=== PATIENT | female | born 1985 | race Two or more races ===

== ENCOUNTER 2017-09-24 09:49 | Emergency (ER) | payer OTHER ==
[2017-09-24 10:11] VITALS: TEMP 98.9; BMI 29.1
--- NOTE | 2017-09-24 10:33 | PDOC ---
History of Present Illness - General History Source: Patient Exam Limitations: No Limitations - History of Present Illness Initial Comments: 09/24/17 11:29 The patient is a 32 year old female, with a significant past medical history of a tonsillectomy( 1 week ago)who presents to the emergency department complaining of a sore throat and decreased p.o. Intake s/p tonsillectomy 1 week ago. The patient reports she has been unable to drink or eat anything secondary to throat pain when swallowing. Patient reports she has noted minimal improvement since her surgery. She reports she has been taking Tylenol 3(15mL) and Lidocaine viscous solution (13mL), with temporary relief of symptoms. She reports associated URI symptoms recently (mild cough,and congestion) but denies any fever, headache, changes in vision, or dizziness. She denies any chest pain , shortness of breath, diaphoresis, or palpitations. She denies any abdominal pain, nausea, vomiting, diarrhea, constipation, or changes in urination. She denies any recent travel or sick contacts No changes to her voice. Allergies: NKDA Past Surgical History: Tonsillectomy Social History: Non smoker. No ETOH or recreational drug use. <Betsy Herrera - Last Filed: 09/24/17 11:29> <Hilario Blake - Last Filed: 09/24/17 13:36> - General Chief Complaint: Sore Throat Stated Complaint: THROAT PAIN Time Seen by Provider: 09/24/17 10:15 Past History <Betsy Herrera - Last Filed: 09/24/17 11:29> - Past Medical History COPD: No - Suicide/Smoking/Psychosocial Hx Smoking History: Never smoked Have you smoked in the past 12 months: No Information on smoking cessation initiated: No Hx Alcohol Use: No Drug/Substance Use Hx: No Substance Use Type: None <Hilario Blake - Last Filed: 09/24/17 13:36> - Past Medical History Allergies/Adverse Reactions: Allergies Allergy/AdvReac Type Severity Reaction Status Date / Time No Known Allergies Allergy Verified 09/24/17 10:39 Home Medications: Ambulatory Orders NK [No Known Home Medication] 09/24/17 Review of Systems - Review of Systems Able to Perform ROS?: Yes Comments:: 09/24/17 11:30 CONSTITUTIONAL: Reported: No reported: Fever, Diaphoresis, Generalized Weakness, Malaise, Loss of Appetite HEENT: Reported: Throat pain, Congestion, Difficulty Swallowing, Tinnitus No reported: Rhinorrhea, Throat Swelling, Mouth Swelling, Ear Pain, Eye Pain, Visual Changes CARDIOVASCULAR: No reported: Chest Pain, Syncope, Palpitations, Irregular Heart Rate, Lightheadedness, Peripheral Edema RESPIRATORY: Reported: Cough No reported: Shortness of Breath, SOB with Exertion, Orthopnea, Wheezing, Stridor, Hemoptysis GASTROINTESTINAL: No reported: Abdominal pain, Abdominal Distension, Nausea, Vomiting, Diarrhea, Constipation GENITOURINARY: No reported: Dysuria, Frequency, Urgency, Hesitancy, Flank Pain, Genital Pain <Herrera,Giomilsy - Last Filed: 09/24/17 11:29> *Physical Exam - Vital Signs Last Vital Signs Temp Pulse Resp BP Pulse Ox 98.9 F 129 H 25 H 136/69 100 09/24/17 10:07 09/24/17 10:07 09/24/17 10:07 09/24/17 10:07 09/24/17 10:07 - Physical Exam Comments: 09/24/17 11:30 GENERAL: The patient is awake, alert, and fully oriented, Nontoxic - in no acute distress. HEAD: Normocephalic, atraumatic. EYES: extraocular movements intact, sclera anicteric, conjunctiva clear. ENT: mildly dry mmm, symmetric posterior pharynx, b/l excudates in posterior pharynx, mild injected, no potserior pharyngeal fullness, no mastoid tenderness , ears with cerumen b/l, airway patent, no stridor, normal voice. NECK: Normal range of motion, supple LUNGS: Breath sounds equal, clear to auscultation bilaterally. No wheezes, no rhonchi, no rales. HEART: Regular rate and rhythm, normal S1 and S2 without murmur, rub or gallop. ABDOMEN: Soft, nontender, normoactive bowel sounds. No guarding, no rebound. . No CVA tenderness EXTREMITIES: Normal range of motion, no edema. No clubbing or cyanosis. No cords, erythema, or tenderness. NEUROLOGICAL: No facial assymetry, Normal speech, SKIN: Warm, Dry, normal turgor, <Herrera,Giomilsy - Last Filed: 09/24/17 11:29> - Vital Signs Last Vital Signs Temp Pulse Resp BP Pulse Ox 98.9 F 129 H 25 H 136/69 100 09/24/17 10:07 09/24/17 10:07 09/24/17 10:07 09/24/17 10:07 09/24/17 10:07 <Hilario Blake - Last Filed: 09/24/17 13:36> ED Treatment Course - LABORATORY CBC & Chemistry Diagram: 09/24/17 11:00 09/24/17 11:00 - ADDITIONAL ORDERS Additional order review: 09/24/17 11:00 RBC 4.62 MCV 91.3 MCHC 32.8 RDW 12.8 MPV 8.3 Neutrophils % 57.1 Lymphocytes % 23.5 Monocytes % 14.2 H Eosinophils % 4.6 H Basophils % 0.6 <Betsy Herrera - Last Filed: 09/24/17 11:29> - LABORATORY CBC & Chemistry Diagram: 09/24/17 11:00 09/24/17 11:00 <Hilario Blake - Last Filed: 09/24/17 13:36> Medical Decision Making - Medical Decision Making 09/24/17 11:25 32y F presents with throat pain 1 week sp tonsilectomy - no associated fever/ chills, difficulty phonating, +difficluty swalling due to pain. on exam pt in n odistress with normal voice, posterior pharynx noted to be healing well, no signs of abscess, assymetry, patent airway - suspect she is not using her medications appropriately she does have tachycardic vitals but i suspect that is due to dehydration will ck basic labs to see if she has a leuckocyosis/left shift A portion of this note was documented by scribe services under my direction. I have reviewed the details of the note, within reason, and agree with the documentation with the following case summary and management plan written by me 09/24/17 12:36 Pts vials improved pt feeling imrpoved labs wnl will dc wit hsupportive measures and ENT fu <Hilario Blake - Last Filed: 09/24/17 13:36> *DC/Admit/Observation/Transfer - Attestations Scribe Attestion: 09/24/17 11:30 Documentation prepared by Betsy Herrera, acting as medical scientific officer for Hilario Blake MD. <Betsy Hererra - Last Filed: 09/24/17 11:29> - Discharge Dispostion Admit: No <Hilario Blake - Last Filed: 09/24/17 13:36> Diagnosis at time of Disposition: Sore throat - Discharge Dispostion Disposition: HOME Condition at time of disposition: Improved - Referrals Referrals: Robbi Lemons MD [Staff Physician] - - Patient Instructions Printed Discharge Instructions: DI for Tonsillectomy-Adult Additional Instructions: Please follow up with your ENT surgeon at [facility]. Take the antonia nmedications as prescribed. If you have any fevers, difficulty swallowing, or other concerns, return to the ED for evaluation. Print Language: CHADIAN
[2017-09-24] MEDS ORDERED: SODIUM CHLORIDE 1,000 ML IV ONE (10:37)
[2017-09-24 11:07] LABS: BASO % 0.6 % (0-2.0); EOS % 4.6 % (0-4.5); HEMATOCRIT 42.2 % (32.4-45.2); HEMOGLOBIN 13.9 GM/dL (10.7-15.3); LYMPH % 23.5 % (8-40); MCHC 32.8 g/dl (32.0-36.0); MEAN CELL VOLUME 91.3 fl (80-96); MEAN PLT VOLUME 8.3 fl (7.5-11.1); MONO % 14.2 % (3.8-10.2); NEUT % 57.1 % (42.8-82.8); PLATELET COUNT 243 K/MM3 (134-434); RBC 4.62 M/mm3 (3.60-5.2); RDW 12.8 % (11.6-15.6)
[2017-09-24 11:37] LABS: ALBUMIN 3.7 g/dl (3.4-5.0); ANION GAP 8 (8-16); BILIRUBIN,TOTAL 0.6 mg/dL (0.2-1.0); BLOOD UREA NITROGEN 11 mg/dL (7-18); CALCIUM 9.3 mg/dL (8.5-10.1); CHLORIDE 100 mmol/L (98-107); CO2 31 mmol/L (21-32); CREATININE 0.8 mg/dL (0.55-1.02); GLUCOSE,RANDOM 92 mg/dL (74-106); POTASSIUM 3.4 mmol/L (3.5-5.1); SGOT/AST 8 U/L (15-37); SGPT/ALT 14 U/L (12-78); SODIUM 139 mmol/L (136-145); TOT PROT 8.4 g/dl (6.4-8.2)
[2017-09-24 11:38] LABS: ALK PHOS 66 U/L (45-117)
[2017-09-24] MEDS ORDERED: LIDOCAINE VISCOUS 2% ORAL/TOP 20 ML UNIT-DOSE CUP MM ONE (12:35)
[2017-09-24] MEDS ORDERED: MAG HYDROX/AL HYDROX/SIMETH 355 ML ORAL.SUSP PO ONE (12:36)
[2017-09-24] MEDS ORDERED: LIDOCAINE VISCOUS 2% ORAL/TOP 20 ML UNIT-DOSE CUP ONE (12:55)
[2017-09-24] MEDS ORDERED: MAG HYDROX/AL HYDROX/SIMETH 30 ML UNIT-DOSE CUP ONE (12:55)
[2017-09-24 13:53] VITALS: BP 120/70; PULSE 80
== END 2017-09-24 13:54 | disposition home or self-care (01) ==
LOC: JER 09:49
PROC: 3E0337Z Introduction of Electrolytic and Water Balance Substance into Peripheral Vein, Percutaneous Approach (ICD-10-PCS; principal; 2017-09-24)
DX: G89.18 Other acute postprocedural pain (principal)
CPT/HCPCS: 36415; 80053; 85025; 99283-25

== ENCOUNTER 2018-02-25 09:53 | Emergency (ER) | payer OTHER ==
[2018-02-25 10:13] VITALS: TEMP 98.1; BMI 32.5
--- NOTE | 2018-02-25 10:15 | PDOC ---
History of Present Illness - General Chief Complaint: Pain, Acute Stated Complaint: ABD PAIN Time Seen by Provider: 02/25/18 10:15 - History of Present Illness Initial Comments: 02/25/18 10:23 Ms. Rai is a 32 yo female w/ recent diagnosis of fibroids who presents for evaluation of right sided abdominal pain she reports goes from her right upper abdomen to her pelvis. She reports this has been ongoing for the past 6-7 days however she decided that "enough was enough" and she needed to come in for further evaluation. She has had some nausea. She is not currently having her period however believes it is due soon. The patient denies chest pain, shortness of breath, headache and dizziness. Denies fever, chills, vomit, diarrhea and constipation. Denies dysuria, frequency, urgency and hematuria. Allergies: NKDA Past History - Past Medical History Allergies/Adverse Reactions: Allergies Allergy/AdvReac Type Severity Reaction Status Date / Time No Known Allergies Allergy Verified 02/25/18 10:10 Home Medications: Ambulatory Orders NK [No Known Home Medication] 09/24/17 COPD: No Other medical history: DENIES. - Suicide/Smoking/Psychosocial Hx Smoking History: Never smoked Have you smoked in the past 12 months: No Hx Alcohol Use: No Drug/Substance Use Hx: No Substance Use Type: None Review of Systems - Review of Systems Comments:: 02/25/18 10:25 GENERAL/CONSTITUTIONAL: No fever or chills. No weakness. HEAD, EYES, EARS, NOSE AND THROAT: No change in vision. No ear pain or discharge. No sore throat. CARDIOVASCULAR: No chest pain or shortness of breath RESPIRATORY: No cough, wheezing, or hemoptysis. GASTROINTESTINAL: +Right abdominal radiating to pelvic pain as described. No nausea, vomiting, diarrhea or constipation. GENITOURINARY: No dysuria, frequency, or change in urination. MUSCULOSKELETAL: No joint or muscle swelling or pain. No neck or back pain. SKIN: No rash NEUROLOGIC: No headache, vertigo, loss of consciousness, or change in strength/ sensation. ENDOCRINE: No increased thirst. No abnormal weight change HEMATOLOGIC/LYMPHATIC: No anemia, easy bleeding, or history of blood clots. ALLERGIC/IMMUNOLOGIC: No hives or skin allergy. *Physical Exam - Vital Signs Last Vital Signs Temp Pulse Resp BP Pulse Ox 98.1 F 76 19 114/71 100 02/25/18 10:10 02/25/18 10:10 02/25/18 10:10 02/25/18 10:10 02/25/18 10:10 - Physical Exam Comments: 02/25/18 10:25 GENERAL: Awake, alert, and fully oriented, in no acute distress HEAD: No signs of trauma, normocephalic, atraumatic EYES: PERRLA, EOMI, sclera anicteric, conjunctiva clear ENT: Auricles normal inspection, hearing grossly normal, nares patent, oropharynx clear without exudates. Moist mucosa NECK: Normal ROM, supple, no lymphadenopathy, JVD, or masses LUNGS: No distress, speaks full sentences, clear to auscultation bilaterally HEART: Regular rate and rhythm, normal S1 and S2, no murmurs, rubs or gallops, peripheral pulses normal and equal bilaterally. ABDOMEN: +Right sided abdominal pain, Soft, normoactive bowel sounds. No guarding, no rebound. No masses EXTREMITIES: Normal inspection, Normal range of motion, no edema. No clubbing or cyanosis. NEUROLOGICAL: Cranial nerves II through XII grossly intact. Normal speech, normal gait, no focal sensorimotor deficits SKIN: Warm, Dry, normal turgor, no rashes or lesions noted. : +Right adnexal tenderness. Os closed. No CMT. No blood noted in vaginal vault. Physiologic discharge appreciated. ED Treatment Course - LABORATORY CBC & Chemistry Diagram: 02/25/18 10:55 02/25/18 10:55 Medical Decision Making - Medical Decision Making 02/25/18 13:31 Ms. Rai is a 32 yo female w/ pmh as described who presents for evaluation of right sided abdominal pain significant for right sided adnexal tenderness on exam. Transvaginal US ordered for r/o torsion negative, however urine and quant HCG as below both positive for early (unconfirmed as well w/ US). Discussed with patient that pain is possibly from this however repeat US ordered for abdominal RUQ and general for evaluation. 02/25/18 16:42 US negative however not able to visualize appendix. Patient repeat exam negative for pain. Concern for acute appendicitis very low at this time. Discharging patient with instructions to f/u in 2-3 days for repeat US and beta for evaluation of . Patient verbalized understanding and agreement and will comply. *DC/Admit/Observation/Transfer Diagnosis at time of Disposition: Early stage of Abdominal pain Qualifiers: Abdominal location: unspecified location Qualified Code(s): R10.9 - Unspecified abdominal pain - Discharge Dispostion Disposition: HOME - Referrals Referrals: Amadeo Trujillo [Primary Care Provider] - - Patient Instructions Printed Discharge Instructions: DI for Abdominal Pain -- Early Additional Instructions: You were found to have early today in the ER. Please follow-up in 2-3 days either in ER or at [facility] as discussed for repeat imaging and lab tests. Return to ER immediately if any return of abdominal pain, fevers, chills, or any other concerning symptoms. - Post Discharge Activity Forms/Work/School Notes: Back to Work
[2018-02-25] MEDS ORDERED: SODIUM CHLORIDE 1,000 ML IV STA (10:43)
[2018-02-25 11:25] LABS: BASO % 0.5 % (0-2.0); EOS % 1.3 % (0-4.5); HEMOGLOBIN 13.1 GM/dL (10.7-15.3); LYMPH % 26.5 % (8-40); MCH 31.1 pg (25.7-33.7); MCHC 33.7 g/dl (32.0-36.0); MEAN CELL VOLUME 92.1 fl (80-96); MEAN PLT VOLUME 9.1 fl (7.5-11.1); NEUT % 64.7 % (42.8-82.8); PLATELET COUNT 195 K/MM3 (134-434); RBC 4.23 M/mm3 (3.60-5.2); RDW 12.9 % (11.6-15.6); WHITE BLOOD COUNT 6.3 K/mm3 (4.0-10.0)
[2018-02-25 11:40] LABS: PROTHROMBIN TIME (PATIENT) 11.3 SEC (9.7-13.0)
[2018-02-25 11:42] LABS: ACTIVATED PTT 30.1 SECONDS (25.2-36.5)
[2018-02-25 11:47] LABS: URINE APPEARANCE CLEAR; URINE BILIRUBIN NEGATIVE (<2.0 mg/dL); URINE COLOR YELLOW; URINE GLUCOSE (UA) NEGATIVE (NEGATIVE); URINE KETONE NEGATIVE (NEGATIVE); URINE LEUK ESTERASE NEGATIVE (NEGATIVE); URINE NITRITE NEGATIVE (NEGATIVE); URINE PROTEIN NEGATIVE (NEGATIVE); URINE UROBILINOGEN NEGATIVE mg/dL (0.2-1.0)
[2018-02-25 11:53] LABS: EPI CELLS RARE /HPF (FEW); URINE MUCUS RARE
[2018-02-25 12:05] LABS: ALBUMIN 3.8 g/dl (3.4-5.0); ALK PHOS 56 U/L (45-117); ANION GAP 8 (8-16); BILIRUBIN,TOTAL 0.5 mg/dL (0.2-1.0); BLOOD UREA NITROGEN 13 mg/dL (7-18); CALCIUM 8.7 mg/dL (8.5-10.1); CHLORIDE 106 mmol/L (98-107); CO2 25 mmol/L (21-32); CREATININE 0.7 mg/dL (0.55-1.02); GLUCOSE,RANDOM 87 mg/dL (74-106); SGOT/AST 8 U/L (15-37); SGPT/ALT 19 U/L (12-78); SODIUM 139 mmol/L (136-145)
[2018-02-25 12:21] LABS: HCG,QUALITATIVE URINE POSITIVE
[2018-02-25] MEDS ORDERED: ACETAMINOPHEN 1000 MG/100 ML VIAL (NON FORMULARY) IVPB ONE (13:44)
[2018-02-25] MEDS ORDERED: ACETAMINOPHEN INJECTION 100 ML IVPB ONE (13:52)
--- NOTE | 2018-02-25 14:06 | PDOC ---
Attending Attestation - Resident Resident Name: Bandar Owen - ED Attending Attestation I have performed the following: I have examined & evaluated the patient, The case was reviewed & discussed with the resident, I agree w/resident's findings & plan, Exceptions are as noted - HPI HPI: 02/25/18 14:01 "The patient is a 32 year old female with a significant PMH of tonsillectomy, fibroids(diagnosed recently), who presents to the emergency department with right sided abdominal pain for about 1 week. The patient reports that her right sided abdominal pain radiates from her right upper abdomen to her pelvis area. Pt denies any vaginal bleeding or discharge. She was previously on depot control but recently had it removed and is now only using condoms. She denies any fever, chills, nausea, vomit, diarrhea, constipation or urinary symptoms. She denies any chest pain, shortness of breath, headache and dizziness. The patient denies other complaints. PCP: Dr. Trujillo " - Physicial Exam PE: 02/25/18 14:02 "GENERAL: Awake, alert, and fully oriented, in no acute distress. HEAD: No signs of trauma EYES: PERRLA, EOMI, sclera anicteric, conjunctiva clear ENT: Auricles normal inspection, hearing grossly normal, nares patent, oropharynx clear without exudates. Moist mucosa NECK: Nontender, no stepoffs, Normal ROM, supple, no lymphadenopathy, JVD, or masses LUNGS: Breath sounds equal, clear to auscultation bilaterally. No wheezes, and no crackles HEART: Regular rate and rhythm, normal S1 and S2, no murmurs, rubs or gallops ABDOMEN: + RLQ tenderness, normoactive bowel sounds. No guarding, no rebound. No masses EXTREMITIES: Normal range of motion, no edema. No clubbing or cyanosis. No cords, erythema, or tenderness NEUROLOGICAL: Cranial nerves II through XII intact. 5/5 strength and sensation in all extremities, Normal speech, normal gait, normal cerebellar function SKIN: Warm, Dry, normal turgor, no rashes or lesions noted. : + R adnexal tenderness, no CMT - Medical Decision Making 02/25/18 14:03 32 F with RLQ pain. UPT positive in ED. TVUS does not know IUP, likely because is too early. No evidence of torsion or ectopic at this time. Will need eval for acute appy given location of pain. - Labs, UA - Pelvic US to r/o appy - Tylenol Pt refusing CT at this time and plans to keep . - Consider MRI if US non-diagnostic 02/25/18 16:47 US with no visualization of appendix. Pt reassessed - abdominal exam now completely nontender. Pt reports resolution of pain. Pt had no leukocytosis, no vomiting, no fever. Suspicion is very low for acute appy. Pt instructed to return for any worsening symptoms, understands need to f/u for repeat US and HCG. Pt is well appearing, with normal vitals. Clinically stable for DC at this time. I discussed the physical exam findings, ancillary test results and final diagnoses with the patient. I answered all of the patient's questions. The patient was satisfied with the care received and felt comfortable with the discharge plan and treatment plan. The patient agrees to follow up with the primary care physician within 24-72 hours.
[2018-02-25 17:13] VITALS: BP 124/75; PULSE 84
== END 2018-02-25 17:00 | disposition home or self-care (01) ==
LOC: JER 09:53
PROC: 3E0337Z Introduction of Electrolytic and Water Balance Substance into Peripheral Vein, Percutaneous Approach (ICD-10-PCS; principal; 2018-02-25)
PROC: 3E033NZ Introduction of Analgesics, Hypnotics, Sedatives into Peripheral Vein, Percutaneous Approach (ICD-10-PCS; 2018-02-25)
DX: O26.891 Other specified pregnancy related conditions, first trimester (principal); R10.31 Right lower quadrant pain; O34.11 Maternal care for benign tumor of corpus uteri, first trimester; Z3A.01 Less than 8 weeks gestation of pregnancy
CPT/HCPCS: 36415; 76705-TC; 76830-TC; 76856-TC; 80053; 81003; 81015; 84702; 84703; 85025; 85610; 85730; 86850; 86870; 86900; 86901; 86902; 87086; 99281-25; J0131; J7030

== ENCOUNTER 2018-02-28 11:55 | Emergency (ER) | payer OTHER ==
[2018-02-28 11:59] VITALS: BP 124/78; PULSE 77; TEMP 98.2; BMI 32.5
--- NOTE | 2018-02-28 12:32 | PDOC ---
History of Present Illness - General Chief Complaint: BHCG Stated Complaint: REVISIT/ LAB VARIANCE Time Seen by Provider: 02/28/18 12:21 - History of Present Illness Initial Comments: 32-year-old female found to have an early a few days ago when seen in the emergency room for abdominal pain. Since her discharge her abdominal pain has gotten better. She is here to rule out an ectopic. She takes Topamax for headaches. No other comorbidities. 02/28/18 12:25 Past History - Past Medical History Allergies/Adverse Reactions: Allergies Allergy/AdvReac Type Severity Reaction Status Date / Time No Known Allergies Allergy Verified 02/28/18 11:56 Home Medications: Ambulatory Orders NK [No Known Home Medication] 09/24/17 COPD: No - Suicide/Smoking/Psychosocial Hx Smoking History: Never smoked Have you smoked in the past 12 months: No Information on smoking cessation initiated: No Hx Alcohol Use: No Drug/Substance Use Hx: No Substance Use Type: None Review of Systems - Review of Systems All Other Systems: Reviewed and Negative *Physical Exam - Vital Signs Last Vital Signs Temp Pulse Resp BP Pulse Ox 98.2 F 77 18 124/78 100 02/28/18 11:57 02/28/18 11:57 02/28/18 11:57 02/28/18 11:57 02/28/18 11:57 - Physical Exam Comments: ABdomen is soft and non tender Neuro intact No gross senroy or motor deficits 02/28/18 12:36 ED Treatment Course - RADIOLOGY Radiology Studies Ordered: Category Date Time Status TRANSVAGINAL US PREG [US] Stat Ultrasound 02/28/18 12:23 Ordered Medical Decision Making - Medical Decision Making 02/28/18 12:40 [facility] get [facility] and US to confirm IUP *DC/Admit/Observation/Transfer Diagnosis at time of Disposition: Miscarriage - Discharge Dispostion Disposition: HOME Condition at time of disposition: Stable Decision to Admit order: No - Referrals Referrals: Amadeo Trujillo [Primary Care Provider] - Jsesica Clemens [Staff Physician] - Becca Bass MD [Staff Physician] - Linnea Penn DO [Staff Physician] - Veronique Alarcon CNM [Certified Nurse Can Maker] - Floresita Celis MD [Non Staff, Medical] - Simon Connolly PA [Physician Summer Sessions Director] - Francesca Villanueva PA [Non Staff, Medical] - Liana Bai [Non Staff, Medical] - - Patient Instructions Printed Discharge Instructions: Dealing With Miscarriage, Miscarriage, DI for Miscarriage Additional Instructions: Return to the emergency room should her symptoms worsen or go unresolved. In the meantime follow-up with your color stripper for further evaluation and treatment options. - Post Discharge Activity
== END 2018-02-28 14:05 | disposition home or self-care (01) ==
LOC: JERFT 11:55
DX: O02.1 Missed abortion (principal)
CPT/HCPCS: 36415; 76817-TC; 84702; 99281-25

== ENCOUNTER 2018-09-20 15:05 | Emergency (ER) | payer OTHER ==
[2018-09-20 15:12] VITALS: BP 136/76; PULSE 108; TEMP 99.6; BMI 22.8
[2018-09-20] MEDS ORDERED: IBUPROFEN 600 MG TABLET (FP) PO ONE ×2 (15:13→15:18)
--- NOTE | 2018-09-20 15:13 | PDOC ---
Rapid Medical Evaluation Medical Evaluation: Allergies Allergy/AdvReac Type Severity Reaction Status Date / Time No Known Allergies Allergy Verified 03/09/18 12:34 I have performed a brief in-person evaluation of this patient. The patient presents with a chief complaint of: c/o sore throat, fever x 1 day; denies rhinorrhea, nasal congestion, cough, body aches, n/v/d; denies taking any antipyretics Pertinent physical exam findings: slight redness to oropharynx, no exudates noted I have ordered the following: Motrin The patient will proceed to the ED for further evaluation. 09/20/18 15:07 Discharge Disposition - Referrals Referrals: Amadeo Trujillo [Primary Care Provider] - - Patient Instructions - Post Discharge Activity
--- NOTE | 2018-09-20 17:11 | PDOC ---
History of Present Illness - General Chief Complaint: Sore Throat Stated Complaint: WEAKNESS Time Seen by Provider: 09/20/18 16:05 - History of Present Illness Initial Comments: 09/20/18 17:09 33-year-old female with cough subjective fever and sore throat times one day Past History - Past Medical History Allergies/Adverse Reactions: Allergies Allergy/AdvReac Type Severity Reaction Status Date / Time No Known Allergies Allergy Verified 09/20/18 15:07 Home Medications: Ambulatory Orders NK [No Known Home Medication] 09/20/18 COPD: No - Suicide/Smoking/Psychosocial Hx Smoking History: Never smoked Have you smoked in the past 12 months: No Hx Alcohol Use: No Drug/Substance Use Hx: No Substance Use Type: None Review of Systems - Review of Systems Constitutional: Yes: Fever HEENTM: Yes: Throat Pain Respiratory: Yes: Cough *Physical Exam - Vital Signs Last Vital Signs Temp Pulse Resp BP Pulse Ox 99.6 F 108 H 20 136/76 99 09/20/18 15:08 09/20/18 15:08 09/20/18 15:08 09/20/18 15:08 09/20/18 15:08 - Physical Exam Comments: 09/20/18 17:10 HEAD: NC/AT EYES: Conjuntiva clear Ears: Canals and TM's normal NOSE: No d/c THROAT: Moist mucous membrances, oral pharanx clear, uvula midline NECK: Supple without adenopathy CARDIAC: S1 S2 LUNGS: CTA Full and Equal breath sounds ABDOMEN: Soft NT ND MS: Full ROM in all joints without edema NEUROLOGIC: No gross sensory or motor deficits, NVID SKIN: Normal color and temperature no lesions or rashes Moderate Sedation - Procedure Monitoring Vital Signs: Procedure Monitoring Vital Signs Temperature 99.6 F 09/20/18 15:08 Pulse Rate 108 H 09/20/18 15:08 Respiratory Rate 20 09/20/18 15:08 Blood Pressure 136/76 09/20/18 15:08 O2 Sat by Pulse Oximetry (%) 99 09/20/18 15:08 ED Treatment Course - Medications Given in the ED: ED Medications Discontinued Medications Generic Name Dose Route Start Last Admin Trade Name Freq PRN Reason Stop Dose Admin Ibuprofen 600 mg 09/20/18 15:13 09/20/18 15:19 Motrin - PO 09/20/18 15:14 600 mg ONCE ONE Administration *DC/Admit/Observation/Transfer Diagnosis at time of Disposition: Upper respiratory infection - Referrals Referrals: Amadeo Trujillo [Primary Care Provider] - - Patient Instructions Printed Discharge Instructions: DI for Viral Upper Respiratory Infection -- Adult Additional Instructions: He may take Tylenol and Motrin as directed for fever and body aches. Return to the emergency room should symptoms worsen or go unresolved and follow-up with your primary care physician one to 2 days for further evaluation and treatment options. - Post Discharge Activity
== END 2018-09-20 17:12 | disposition home or self-care (01) ==
LOC: JER 15:05 → JERFT 15:05
DX: J06.9 Acute upper respiratory infection, unspecified (principal); B97.89 Other viral agents as the cause of diseases classified elsewhere
CPT/HCPCS: 87804; 99281-25

== ENCOUNTER 2019-03-18 08:00 | Inpatient (IN) | payer OTHER ==
[2019-03-18] MEDS ORDERED: OXYTOCIN 30 UNITS in 0.9% NS 30 UNIT/500 ML INFUS.BAG IVPB ONE (08:24)
[2019-03-18] MEDS: ELECTROLYTE-148 SOLN 1,000 ML IV SCH ×3 (08:30→14:30)
[2019-03-18] MEDS ORDERED: BUTORPHANOL TARTRATE 1 MG/ML VIAL IVPB ONE (08:34)
[2019-03-18] MEDS ORDERED: PROMETHAZINE HCL 25 MG/1 ML VIAL IVPUSH ONE (08:34)
[2019-03-18 09:01] VITALS: BMI 34.5
--- NOTE | 2019-03-18 09:24 | HP ---
Past Medical History - Admission Chief Complaint: Here for labor induction. History of Present Illness: 33 y/o female with SIUP at 37.3 weeks gestation here for IOL due to gestational HTN. 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 no signs of anemia. H/o X 2, h/o induction for hypertension in the past. Pt diagnosed with gHTN this , recently started on labetalol 200 BID. Pt denies WINSLOW/RUQ pain or changes/spots in vision. No clonus in LE. +1 nonpitting edema B/l. History Source: Patient, Medical Record Limitations to Obtaining History: No Limitations - Past Medical History Cardiovascular: Yes: HTN Pulmonary: No: Asthma, COPD Hepatobiliary: No: Hepatitis B, Hepatitis C Renal/: Yes: UTI Reproductive: Yes: Fibroids. No: Ectopic , Endometriosis, PID ...: 3 ...Para: 2 ...Term: 2 ...LMP: 07/04/18 ... Weeks Gestation by Dates: 37.3 ...EDC by Dates: 04/05/19 ...EDC by Sono: 04/05/19 Infectious Disease: No: HIV, MRSA, STD's Psych: No: Anxiety, Bipolar, Depression - Past Surgical History Hx Myomectomy: No Hx Transabdominal Cerclage: No Additional Surgical History: fluid evacuation from brain/craniotomy - Smoking History Smoking history: Never smoked Have you smoked in the past 12 months: No - Alcohol/Substance Use Hx Alcohol Use: No - Social History Usual Living Arrangement: Yes: With Spouse ADL: Independent History of Recent Travel: No Home Medications - Allergies Allergies/Adverse Reactions: Allergies Allergy/AdvReac Type Severity Reaction Status Date / Time No Known Allergies Allergy Verified 03/18/19 08:45 - Home Medications Home Medications: Ambulatory Orders Vitamins (Sjr) - 1 tab PO DAILY 02/18/19 Review of Systems - Review of Systems Constitutional: reports: No Symptoms Eyes: reports: No Symptoms HENT: reports: No Symptoms Neck: reports: No Symptoms Cardiovascular: reports: No Symptoms Respiratory: reports: No Symptoms Gastrointestinal: reports: No Symptoms Genitourinary: reports: No Symptoms Breasts: reports: No Symptoms Reported Musculoskeletal: reports: No Symptoms Integumentary: reports: No Symptoms Neurological: reports: No Symptoms Endocrine: reports: No Symptoms Hematology/Lymphatic: reports: No Symptoms Psychiatric: reports: No Symptoms Physical Exam - Maternity Vital Signs: Vital Signs Temperature 98.1 F 03/18/19 08:50 Pulse Rate 104 H 03/18/19 08:50 Respiratory Rate 20 03/18/19 08:50 Blood Pressure 125/82 03/18/19 08:50 O2 Sat by Pulse Oximetry (%) Constitutional: Yes: Well Nourished, No Distress, Calm Eyes: Yes: Conjunctiva Clear, EOM Intact Neck: Yes: Supple Cardiovascular: Yes: Regular Rate and Rhythm Lungs: Clear to auscultation - Abdominal Exam/OB Number of Fetuses: Single Presentation: Vertex Contractions: No Category: I Accelerations: Uniform Decelerations: None - Vaginal Exam/OB Dilatation (cm): 3 Effacement (%): 50 Amniotic Membrane Status: Intact Presentation: Vertex/Position - Physical Exam Psychiatric: Yes: Alert, Oriented Hemorrhage Risk Assessment - Risk Factors Medium Risk Factors: Yes: None. No: Large myomas High Risk Factors: Yes: None Risk Score: 1 Risk Level: Medium Risk Problem List - Problems (1) Gestational hypertension affecting third Code(s): O13.9 - GESTATIONAL HTN W/O SIGNIFICANT PROTEINURIA, UNSP TRIMESTER (2) Anti-Melton antibodies present Code(s): R76.8 - OTHER SPECIFIED ABNORMAL IMMUNOLOGICAL FINDINGS IN SERUM Assessment/Plan 33 y/o with SIUP at 37.3 weeks gestation here for IOL due to gestational HTN BPs in normal to mild range NST reactive bishops score 8, ready for pitocin active management
[2019-03-18] MEDS ORDERED: OXYTOCIN 30 UNITS in 0.9% NS 30 UNIT/500 ML INFUS.BAG IVPB SCH (10:00)
[2019-03-18 10:01] LABS: EPI CELLS 20.4 /HPF (0-5/HPF); HYALINE CASTS 45 /lpf (0-8); PH,URINE 5.5 (5.0-8.0); URINE APPEARANCE CLOUDY; URINE BACTERIA 1587.3 /hpf (NEGATIVE); URINE BILIRUBIN NEGATIVE (NEGATIVE); URINE COLOR DK YELLOW; URINE GLUCOSE (UA) NEGATIVE (NEGATIVE); URINE KETONE TRACE (NEGATIVE); URINE LEUK ESTERASE 3+ (NEGATIVE); URINE NITRITE NEGATIVE (NEGATIVE); URINE PROTEIN 1+ (NEGATIVE); URINE RBC 1 /hpf (0-4); URINE WBC 116 /hpf (0-5)
[2019-03-18 10:16] LABS: BASO % 0.5 % (0-2.0); EOS % 0.4 % (0-4.5); LYMPH % 19.1 % (8-40); MCH 26.6 pg (25.7-33.7); MCHC 33.2 g/dl (32.0-36.0); MEAN CELL VOLUME 80.2 fl (80-96); MEAN PLT VOLUME 8.6 fl (7.5-11.1); MONO % 8.5 % (3.8-10.2); NEUT % 71.5 % (42.8-82.8); RBC 3.37 M/mm3 (3.60-5.2); RDW 15.7 % (11.6-15.6); WHITE BLOOD COUNT 7.7 K/mm3 (4.0-10.0)
[2019-03-18 10:34] LABS: BLOOD UREA NITROGEN 10.7 mg/dL (7-18); CALCIUM 8.8 mg/dL (8.5-10.1); CREATININE 0.9 mg/dL (0.55-1.3); POTASSIUM 3.4 mmol/L (3.5-5.1)
[2019-03-18 10:37] LABS: PLATELET COUNT 228 K/MM3 (134-434)
[2019-03-18 10:39] LABS: ALBUMIN 2.5 g/dl (3.4-5.0); BILIRUBIN,TOTAL 0.4 mg/dL (0.2-1); BLOOD UREA NITROGEN 11.1 mg/dL (7-18); CALCIUM 9.2 mg/dL (8.5-10.1); CREATININE 0.9 mg/dL (0.55-1.3); POTASSIUM 3.4 mmol/L (3.5-5.1); TOT PROT 6.8 g/dl (6.4-8.2); URIC ACID 5.1 mg/dL (2.6-7.2)
[2019-03-18 11:59] LABS: INR 0.96 (0.83-1.09); PROTHROMBIN TIME (PATIENT) 11.3 SEC (9.7-13.0)
--- NOTE | 2019-03-18 12:37 | PN ---
Progress Note (short form) - Note Progress Note: Labs reviewed. protein/cr ration = 0.208, does not meet criteria for pre eclampsia by proteinuria at this time Problem List - Problems (1) Gestational hypertension affecting third Code(s): O13.9 - GESTATIONAL HTN W/O SIGNIFICANT PROTEINURIA, UNSP TRIMESTER (2) Anti-Melton antibodies present Code(s): R76.8 - OTHER SPECIFIED ABNORMAL IMMUNOLOGICAL FINDINGS IN SERUM
[2019-03-18] MEDS ORDERED: FENTANYL/BUPIVACAINE/NS/PF - PCEA - 50 ML DISP.SYRIN EP ONE ×2 (12:47→17:44)
[2019-03-18] MEDS ORDERED: NALOXONE HCL 0.4 MG/ML VIAL IVPUSH PRN (13:40)
[2019-03-18] MEDS ORDERED: BUPIVACAINE HCL/PF 0.25% (2.5MG/ML) 10 ML VIAL ONE (13:42)
[2019-03-18] MEDS ORDERED: LIDO 2%/EPI 1:200000 PRESRVFRE (20 ML SDVIAL) ONE (13:42)
[2019-03-18] MEDS: FENTANYL/BUPIVACAINE/NS/PF - PCEA - 50 ML DISP.SYRIN EP SCH ×2 (13:55→17:49)
--- NOTE | 2019-03-18 18:40 | PN ---
Ante-Partal Exam - Subjective Subjective: Feeling pressure. Vital Signs: Vital Signs Temperature 98.1 F 03/18/19 17:59 Pulse Rate 86 03/18/19 18:30 Respiratory Rate 20 03/18/19 18:30 Blood Pressure 154/89 03/18/19 18:30 O2 Sat by Pulse Oximetry (%) 100 03/18/19 18:15 Bleeding: Yes Bleeding Description: Mild Headache: No Visual changes: No Right upper quadrant pain: No - Contractions Contractions: Yes Regularity: Regular Intensity: Strong - Exam during Labor Heart Rate: 130 Variability: Moderate Category: I Monitor Accelerations: Present Monitor Decelerations: None Exam: Vaginal Dilatation (cm): 9.5 Effacement (%): 100 Amniotic Membrane Status: Ruptured Presentation: Vertex Station: 0 - Assessment/Plan Assessment/Plan: 33 y/o P2 female with SIUP at 37.3, IOL for gHTN FHTs cat 1 GHTN, BPs normal to mild range, no medication required since admission IOL, on pitocin s/p AROM, 9.5 cm dilated, to begin pushing in 30 mins GBS negative anticipate
[2019-03-18] MEDS ORDERED: OXYTOCIN 20 UNITS in 0.9% NS 20 UNIT/1,000 ML INFUS.BAG IV ONE (19:01)
[2019-03-18] MEDS: MISOPROSTOL 200 MCG TABLET NR SCH ×2 (19:45→22:00)
--- NOTE | 2019-03-18 19:58 | PN ---
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 Present: No Infant Gender: Male Position: Left, OA - 1 Minute Total Score: 6 5 Minutes Total Score: 9 - Feeding Plan Initial Plan: Elected not to breastfeed exclusively throughout hospitalization Remarks - Remarks Remarks: of baby from DAVID position across intact perineum after delivery of head, nuchal cord noted, clamped and cut at perineum anterior shoulder (right) didn't delivery with gentle downward traction, deandre position and suprapubic pressure applied to deliver shoulder, approx 20 seconds from delivery of head to shoulder remainder of delivered with ease, taken to warmer to be assessed by staff, Apgars 6/9 assigned placenta delivered manually and in tact, ultrasound completed afterward, no retained placenta noted uterine atony noted after delivery, 1000mcg [place] cytotec given, pitocin running wide open no laceration appreciated, no repair indicated mom stable baby to nursery
[2019-03-18] MEDS ORDERED: BISACODYL 10 MG SUPP.RECT RC PRN (19:59)
[2019-03-18] MEDS ORDERED: BENZOCAINE 20% 57 GM BOTTLE TP PRN (19:59)
[2019-03-18] MEDS ORDERED: WITCH HAZEL 50% (TUCKS) 40 PAD/JAR PAD TP PRN (19:59)
[2019-03-18] MEDS ORDERED: IBUPROFEN 600 MG TABLET (FP) PO PRN (19:59)
[2019-03-18] MEDS ORDERED: BENZOCAINE 28 GM HEMORRHOIDAL OINTMENT TP PRN (19:59)
[2019-03-18] MEDS ORDERED: METHYLERGONOVINE MALEATE 0.2 MG/1 ML AMP IM PRN (19:59)
[2019-03-18] MEDS ORDERED: OXYTOCIN 20 UNITS in 0.9% NS 20 UNIT/1,000 ML INFUS.BAG IV SCH (20:00)
[2019-03-18 20:13] LABS: ARTERIAL BLD GAS O2 SATURATION 45.9 % (95-98); ARTERIAL BLOOD GAS BASE EXCESS 0.4 meq/l (-2-2); ARTERIAL BLOOD GAS PCO2 56.4 mmHg (35-45); ARTERIAL BLOOD GAS pH 7.31 (7.35-7.45)
[2019-03-18 20:18] LABS: VENOUS PC02 43.5 mmHg (41-51); VENOUS PH 7.38 (7.31-7.41); VENOUS PO2 33.9 mmHg (30-40)
[2019-03-18 20:19] LABS: ARTERIAL BLOOD GAS PO2 23.6 mmHg (80-105)
[2019-03-18] MEDS ORDERED: ACETAMINOPHEN 325 MG TABLET (FP) ONE (20:44)
[2019-03-18] MEDS ORDERED: ceFAZolin SODIUM 1 GM VIAL ONE (20:45)
[2019-03-18] MEDS ORDERED: CEFAZOLIN 2 GM in DEXTROSE 5%-WATER - 50 ML IVPB SCH (20:45)
--- NOTE | 2019-03-18 20:49 | PN ---
Progress Note, Physician History of Present Illness: Pt has fever of 101.2 Pt did receive 1000mcg [place] cytotec which can cause fever. however, manual extraction of placenta was completed will give prophylactic antibiotics for now continue to observe - Current Medication List Current Medications: Active Medications Acetaminophen (Tylenol -) 650 mg PO Q3H PRN PRN Reason: PAIN Benzocaine (Americaine 20% [place] -) 1 spray TP PRN PRN PRN Reason: PAIN Benzocaine (Americaine Ointment -) 1 applic TP PRN PRN PRN Reason: PAIN Bisacodyl (Dulcolax Suppository -) 10 mg RC PRN PRN PRN Reason: CONSTIPATION Fentanyl/Bupivacaine/Sodium Chlor (Bupivicaine 0.125%/Fentanyl 2mcg/Ml Pcea) 50 ml EP [facility]; Protocol Last Admin: 03/18/19 17:49 Dose: 50 ml Ferrous Sulfate (Feosol -) 325 mg PO TIDCM [facility] Parenteral Electrolytes (Plasma-Lyte 148 -) 1,000 mls @ 125 mls/hr IV [facility] Last Admin: 03/18/19 14:30 Dose: 125 mls/hr Oxytocin/Sodium Chloride (Normal Saline+20 Units Oxytocin -) 20 unit in 1,000 mls @ 125 mls/hr IV [facility] Cefazolin Sodium 2 gm/ (Dextrose) 50 mls @ 200 mls/hr IVPB Q8H-IV [facility] Ibuprofen (Motrin -) 600 mg PO Q4H PRN PRN Reason: PAIN Misoprostol (Cytotec -) 1,000 mcg NR [facility] Naloxone HCl (Narcan -) 0.4 mg IVPUSH PRN PRN PRN Reason: Sedation Multivit/Folic Acid/Iron ( Vitamins (Sjr) -) 1 tab PO DAILY [facility] Senna/Docusate Sodium (Pericolace -) 2 tablet PO HS PRN PRN Reason: CONSTIPATION Witch Holli/Glycerin (Tucks Pads -) 1 pad TP PRN PRN PRN Reason: PAIN - Objective Vital Signs: Vital Signs Temperature 101.2 F H 03/18/19 20:40 Pulse Rate 103 H 03/18/19 19:15 Respiratory Rate 20 03/18/19 19:15 Blood Pressure 143/57 L 03/18/19 19:15 O2 Sat by Pulse Oximetry (%) 99 03/18/19 19:15 Labs: CBC, BMP 03/18/19 09:15 03/18/19 09:15 INR, PTT INR 0.96 (0.83-1.09) 03/18/19 09:15 Problem List - Problems (1) Gestational hypertension affecting third Code(s): O13.9 - GESTATIONAL HTN W/O SIGNIFICANT PROTEINURIA, UNSP TRIMESTER (2) Anti-Melton antibodies present Code(s): R76.8 - OTHER SPECIFIED ABNORMAL IMMUNOLOGICAL FINDINGS IN SERUM
[2019-03-18] MEDS: ACETAMINOPHEN 325 MG TABLET (FP) PO PRN (20:50)
[2019-03-18 21:06] LABS: BASO % 0.2 % (0-2.0); EOS % 0.1 % (0-4.5); HEMATOCRIT 27.2 % (32.4-45.2); HEMOGLOBIN 8.6 GM/dL (10.7-15.3); LYMPH % 7.6 % (8-40); MCH 25.8 pg (25.7-33.7); MCHC 31.6 g/dl (32.0-36.0); MEAN CELL VOLUME 81.5 fl (80-96); MEAN PLT VOLUME 8.4 fl (7.5-11.1); MONO % 8.8 % (3.8-10.2); NEUT % 83.3 % (42.8-82.8); PLATELET COUNT 210 K/MM3 (134-434); RBC 3.33 M/mm3 (3.60-5.2); WHITE BLOOD COUNT 13.7 K/mm3 (4.0-10.0)
[2019-03-18] MEDS ORDERED: CEFAZOLIN 2 GM/D5W 2 GM/50 ML ML IVPB SCH (21:51)
[2019-03-18] MEDS: FERROUS SO4 325 MG TABLET (FP) PO SCH (22:15)
[2019-03-19] MEDS: CEFAZOLIN 2 GM/D5W 2 GM/50 ML ML IVPB SCH ×3 (05:41→21:59)
--- NOTE | 2019-03-19 06:17 | PN ---
Post Progress Note - Subjective Subjective: Pt seen/evaluated and doing well. Tolerating diet, ambulating, voiding. Lochia moderate but stable. Had 100.2 temp overnight, denies f/c this a.m. Type of Delivery: Vital Signs: Vital Signs Temperature 98.8 F 03/19/19 05:39 Pulse Rate 88 03/19/19 05:39 Respiratory Rate 03/19/19 05:39 Blood Pressure 137/88 03/19/19 05:39 O2 Sat by Pulse Oximetry (%) 100 03/18/19 19:30 Uterus: Yes: Fundus Firm Abdomen/GI: Yes: Abdomen soft, Tolerating PO Lochia: Yes: Rubra Lochia, amount: Small Extremities: Yes: Calves non-tender. No: Edema Perineum: Yes: Intact Activity: Ambulating - Labs Labs: CBC WBC 13.7 K/mm3 (4.0-10.0) H 03/18/19 20:58 RBC 3.33 M/mm3 (3.60-5.2) L 03/18/19 20:58 Hgb 8.6 GM/dL (10.7-15.3) L 03/18/19 20:58 Hct 27.2 % (32.4-45.2) L 03/18/19 20:58 MCV 81.5 fl (80-96) 03/18/19 20:58 MCH 25.8 pg (25.7-33.7) 03/18/19 20:58 MCHC 31.6 g/dl (32.0-36.0) L 03/18/19 20:58 RDW 16.0 % (11.6-15.6) H 03/18/19 20:58 Plt Count 210 K/MM3 (134-434) 03/18/19 20:58 MPV 8.4 fl (7.5-11.1) 03/18/19 20:58 Absolute Neuts (auto) 11.4 K/mm3 (1.5-8.0) H 03/18/19 20:58 Neutrophils % 83.3 % (42.8-82.8) H 03/18/19 20:58 Lymphocytes % 7.6 % (8-40) L D 03/18/19 20:58 Monocytes % 8.8 % (3.8-10.2) 03/18/19 20:58 Eosinophils % 0.1 % (0-4.5) 03/18/19 20:58 Basophils % 0.2 % (0-2.0) 03/18/19 20:58 Nucleated RBC % 0 % (0-0) 03/18/19 20:58 Problem List - Problems (1) Gestational hypertension affecting third Code(s): O13.9 - GESTATIONAL HTN W/O SIGNIFICANT PROTEINURIA, UNSP TRIMESTER (2) Anti-Melton antibodies present Code(s): R76.8 - OTHER SPECIFIED ABNORMAL IMMUNOLOGICAL FINDINGS IN SERUM (3) hemorrhage Code(s): O72.1 - OTHER IMMEDIATE HEMORRHAGE Assessment/Plan 33 y/o PPD#1 s/p normal delivery, IOL for gestational HTN, also with PPH regular diet encourage ambulation s/p fever at 9 pm last night, likely 2/2 cytotec, continue 24 hours antibiotic prophylaxis BPs all normal range/mild range since admission, does not meet criteria for pre Eclampsia, will monitor lochia has been stable, await a.m. cbc
[2019-03-19 06:49] LABS: BASO % 0.5 % (0-2.0); EOS % 0.2 % (0-4.5); HEMATOCRIT 22.2 % (32.4-45.2); HEMOGLOBIN 7.2 GM/dL (10.7-15.3); LYMPH % 13.2 % (8-40); MCH 26.4 pg (25.7-33.7); MCHC 32.6 g/dl (32.0-36.0); MEAN CELL VOLUME 80.8 fl (80-96); MEAN PLT VOLUME 8.6 fl (7.5-11.1); MONO % 9.5 % (3.8-10.2); NEUT % 76.6 % (42.8-82.8); PLATELET COUNT 193 K/MM3 (134-434); RBC 2.75 M/mm3 (3.60-5.2); RDW 15.9 % (11.6-15.6)
[2019-03-19] MEDS: FERROUS SO4 325 MG TABLET (FP) PO SCH ×3 (08:00→16:47)
--- NOTE | 2019-03-19 09:18 | PN ---
Progress Note (short form) - Note Progress Note: Nursing staff called regarding 2 mild range elevated BP. Pt asymptomatic. Will restart Labetalol with hold parameters. Pt also with Hgb of 7.2, is s/p PPH, asymptomatic, will recheck CBC this afternoon. For PO Iron at this time. Problem List - Problems (1) Gestational hypertension affecting third Code(s): O13.9 - GESTATIONAL HTN W/O SIGNIFICANT PROTEINURIA, UNSP TRIMESTER (2) Anti-Melton antibodies present Code(s): R76.8 - OTHER SPECIFIED ABNORMAL IMMUNOLOGICAL FINDINGS IN SERUM (3) hemorrhage Code(s): O72.1 - OTHER IMMEDIATE HEMORRHAGE
[2019-03-19] MEDS: PRENATAL VITAMINS W/ FOLIC ACID TABLET (FP) PO SCH (09:44)
[2019-03-19] MEDS: LABETALOL HCL 200 MG TABLET (FP) PO SCH ×2 (10:29→22:05)
[2019-03-19] MEDS ORDERED: DIPHTH,PERTUSS(ACELL),TET 0.5 ML DISP.SYRIN IM ONE (11:00)
[2019-03-19 14:51] LABS: BASO % 0.3 % (0-2.0); EOS % 0.4 % (0-4.5); HEMATOCRIT 22.9 % (32.4-45.2); HEMOGLOBIN 7.5 GM/dL (10.7-15.3); LYMPH % 12.2 % (8-40); MCH 26.2 pg (25.7-33.7); MCHC 32.6 g/dl (32.0-36.0); MEAN CELL VOLUME 80.2 fl (80-96); MEAN PLT VOLUME 8.5 fl (7.5-11.1); MONO % 8.9 % (3.8-10.2); NEUT % 78.2 % (42.8-82.8); RBC 2.85 M/mm3 (3.60-5.2); RDW 15.9 % (11.6-15.6); WHITE BLOOD COUNT 13.8 K/mm3 (4.0-10.0)
[2019-03-19 15:04] LABS: PLATELET COUNT 212 K/MM3 (134-434)
[2019-03-19] MEDS ORDERED: SENNOSIDES/DOCUSATE COMBO (SENNA PLUS) TABLET (UD) PO PRN (22:00)
[2019-03-20] MEDS: FERROUS SO4 325 MG TABLET (FP) PO SCH ×3 (08:10→17:22)
--- NOTE | 2019-03-20 08:39 | PN ---
Post Progress Note - Subjective Subjective: Pt seen/evaluated. Eating breakfast upon my arrival to room. No complaints. Does not c/o headache/changes in vision/RUQ pain. Some LE edema, no tenderness. BPs have been in mild HTN range since delivery. Taking Labetalol 200 BID. Type of Delivery: Vital Signs: Vital Signs Temperature 98.0 F 03/19/19 22:00 Pulse Rate 88 03/20/19 06:10 Respiratory Rate 20 03/20/19 06:10 Blood Pressure 146/86 03/20/19 06:10 O2 Sat by Pulse Oximetry (%) 100 03/18/19 19:30 Uterus: Yes: Fundus Firm Incision: Yes: Dressing dry and intact Abdomen/GI: Yes: Abdomen soft Lochia: Yes: Rubra Lochia, amount: Small Extremities: Yes: Calves non-tender. No: Calf tenderness Perineum: Yes: Intact Activity: Ambulating - Labs Labs: CBC WBC 13.8 K/mm3 (4.0-10.0) H 03/19/19 14:20 RBC 2.85 M/mm3 (3.60-5.2) L 03/19/19 14:20 Hgb 7.5 GM/dL (10.7-15.3) L 03/19/19 14:20 Hct 22.9 % (32.4-45.2) L 03/19/19 14:20 MCV 80.2 fl (80-96) 03/19/19 14:20 MCH 26.2 pg (25.7-33.7) 03/19/19 14:20 MCHC 32.6 g/dl (32.0-36.0) 03/19/19 14:20 RDW 15.9 % (11.6-15.6) H 03/19/19 14:20 Plt Count 212 K/MM3 (134-434) 03/19/19 14:20 MPV 8.5 fl (7.5-11.1) 03/19/19 14:20 Absolute Neuts (auto) 10.8 K/mm3 (1.5-8.0) H 03/19/19 14:20 Neutrophils % 78.2 % (42.8-82.8) 03/19/19 14:20 Lymphocytes % 12.2 % (8-40) 03/19/19 14:20 Monocytes % 8.9 % (3.8-10.2) 03/19/19 14:20 Eosinophils % 0.4 % (0-4.5) D 03/19/19 14:20 Basophils % 0.3 % (0-2.0) 03/19/19 14:20 Nucleated RBC % 0 % (0-0) 03/19/19 14:20 Problem List - Problems (1) Gestational hypertension affecting third Code(s): O13.9 - GESTATIONAL HTN W/O SIGNIFICANT PROTEINURIA, UNSP TRIMESTER (2) Anti-Melton antibodies present Code(s): R76.8 - OTHER SPECIFIED ABNORMAL IMMUNOLOGICAL FINDINGS IN SERUM (3) hemorrhage Code(s): O72.1 - OTHER IMMEDIATE HEMORRHAGE Assessment/Plan 33 y/o PPD#2 s/p normal , gestational HTN, post hemorrhage Hgb stable pt with mild range BPs, taking Labetalol 200 BID, will have nephro come see pt for clearance to go home regular diet PO pain meds possible d/c home today if nephro says ok
[2019-03-20] MEDS: PRENATAL VITAMINS W/ FOLIC ACID TABLET (FP) PO SCH (09:07)
[2019-03-20] MEDS: LABETALOL HCL 200 MG TABLET (FP) PO SCH (09:07)
--- NOTE | 2019-03-20 11:46 | CONSULT ---
Consult - text type - Consultation Consultation Note: Renal Consult for hypertension This is a 33 year old woman with history of hydrocephalus presented at 37 weeks with gestational hypertension and s/p vaginal delivery with hypertension. Pt reports that early on in her her BP was noted to be high and was started on medication. She did not have hypertension prior to . Currently denies any CP, SOB, WINSLOW, blurry vision , abd pain, N/V/D. Making urine. No in significant pain. PMhx: as above AllergieS: NKDA Family Hx: Hypertension (brother in 30s) Social Hx: No T/A/D ROS: as per HPI, all other pertinent ros negative Home Medications Medication Instructions Recorded Vitamins (Sjr) - 1 tab PO DAILY 02/18/19 Ferrous Sulfate [Feosol] 325 mg PO BID #60 tablet 03/19/19 Labetalol HCl [Normodyne -] 200 mg PO BID 03/19/19 Vital Signs Temperature 98.5 F 03/20/19 08:50 Pulse Rate 94 H 03/20/19 08:50 Respiratory Rate 20 03/20/19 08:50 Blood Pressure 140/85 03/20/19 08:50 O2 Sat by Pulse Oximetry (%) 100 03/18/19 19:30 Intake & Output 03/17/19 03/18/19 03/19/19 03/20/19 23:59 23:59 23:59 23:59 Intake Total 3256 Output Total 1100 650 Balance 2156 -650 Weight 106.141 kg NAD awake and alert neck supple no LE edema CBC, BMP 03/19/19 14:20 03/18/19 09:15 Laboratory Tests 03/18/19 03/18/19 08:30 08:30 Urine Protein 1+ H Urine Ketones Trace H Ur Leukocyte Esterase 3+ H Urine WBC (Auto) 116 Ur Random Creatinine 259.0 H U Random Total Protein 54.0 H UPCR 0.2 Current Medications Acetaminophen (Tylenol -) 650 mg PO Q3H PRN PRN Reason: PAIN Last Admin: 03/18/19 20:50 Dose: 650 mg Benzocaine (Americaine 20% [place] -) 1 spray TP PRN PRN PRN Reason: PAIN Benzocaine (Americaine Ointment -) 1 applic TP PRN PRN PRN Reason: PAIN Bisacodyl (Dulcolax Suppository -) 10 mg RC PRN PRN PRN Reason: CONSTIPATION Fentanyl/Bupivacaine/Sodium Chlor (Bupivicaine 0.125%/Fentanyl 2mcg/Ml Pcea) 50 ml EP ASDIR [facility]; Protocol Last Admin: 03/18/19 17:49 Dose: 50 ml Ferrous Sulfate (Feosol -) 325 mg PO TIDCM [facility] Last Admin: 03/20/19 08:10 Dose: 325 mg Parenteral Electrolytes (Plasma-Lyte 148 -) 1,000 mls @ 125 mls/hr IV ASDIR [facility] Last Admin: 03/18/19 14:30 Dose: 125 mls/hr Oxytocin/Sodium Chloride (Normal Saline+20 Units Oxytocin -) 20 unit in 1,000 mls @ 125 mls/hr IV ASDIR [facility] Last Admin: 03/18/19 19:45 Dose: 125 mls/hr Ibuprofen (Motrin -) 600 mg PO Q4H PRN PRN Reason: PAIN Labetalol HCl (Normodyne -) 200 mg PO BID [facility] Last Admin: 03/20/19 09:07 Dose: 200 mg Naloxone HCl (Narcan -) 0.4 mg IVPUSH PRN PRN PRN Reason: Sedation Multivit/Folic Acid/Iron ( Vitamins (Sjr) -) 1 tab PO DAILY [facility] Last Admin: 03/20/19 09:07 Dose: 1 tab Senna/Docusate Sodium (Pericolace -) 2 tablet PO HS PRN PRN Reason: CONSTIPATION Witch Holli/Glycerin (Tucks Pads -) 1 pad TP PRN PRN PRN Reason: PAIN 33 year old woman with no significant past medical history presented at 37 weeks with gestational hypertension and s/p vaginal dilivery with hypertension. # hypertension from preesclaspia vs. gestation hypertension vs. pre- existing hypertension #37 weeks gestation s/p vaginal delivery #Anemia s/p /delivery Urine PCR <0.3 which makes preeclampsia less likely Start NIfdedpine ER 30mg Daily Change labetalol to 200mg Q6h PRN for SBP > 160 or DBP > 100 d/c NSAIDs pain control low salt diet will need inpatient monitoring Thank you Salo rey
[2019-03-20] MEDS ORDERED: LABETALOL HCL 200 MG TABLET (FP) PO PRN (12:00)
[2019-03-20] MEDS: NIFEdipine E.R. 30 MG TABLET (FP) PO SCH (12:16)
[2019-03-20] MEDS: ACETAMINOPHEN 325 MG TABLET (FP) PO PRN (22:05)
[2019-03-21] MEDS: ACETAMINOPHEN 325 MG TABLET (FP) PO PRN ×2 (01:47→06:14)
[2019-03-21] MEDS: FERROUS SO4 325 MG TABLET (FP) PO SCH ×2 (08:01→12:03)
[2019-03-21 09:11] VITALS: TEMP 98.5
--- NOTE | 2019-03-21 09:54 | DS ---
Physical Exam-STALLION MANAGER Vital Signs: Vital Signs Temperature 98.5 F 03/21/19 09:00 Pulse Rate 102 H 03/21/19 09:00 Respiratory Rate 20 03/21/19 09:00 Blood Pressure 121/81 03/21/19 09:00 O2 Sat by Pulse Oximetry (%) 100 03/18/19 19:30 Constitutional: No: No Distress Eyes: Yes: Conjunctiva Clear HENT: Yes: Atraumatic Neck: Yes: Supple Cardiovascular: Yes: Regular Rate and Rhythm Respiratory: Yes: Regular Gastrointestinal: Yes: Normal Bowel Sounds Pelvis: Yes: WNL External Genitalia: Yes: Normal Vaginal Exam: Yes: Normal Cervix: Yes: Normal Uterus: Yes: Firm ....Post : Yes: Uterus firm Breast(s): Yes: WNL Musculoskeletal: Yes: WNL Extremities: Yes: WNL Neurological: Yes: Alert, Oriented ...Motor Strength: WNL Psychiatric: Yes: Alert, Oriented Labs: CBC, BMP 03/19/19 14:20 03/18/19 09:15 Delivery - Delivery Vaginal Delivery: Shoulder/Difficult (right (anterior) shoulder delivered after deandre and suprapubic pressure) Maneuvers: deandre, suprapubic Type of Anesthesia: Epidural Episiotomy/Laceration: None EBL (cc): 500 Delivery, Single - Stages of Labor Date 1st Stage Initiatied: 03/18/19 Time 1st Stage Initiated: 09:30 Date 2nd Stage Initiated: 03/18/19 Time 2nd Stage Initiated: 19:10 Date of Delivery: 03/18/19 Time of Delivery: 19:26 Time Placenta Delivered: 19:40 Placenta: Yes: Manual Removal - Condition of [place] 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 She was evaluated by Psychologist Educational. Condition: Good - Instructions Diet, Activity, Other Instructions: Physical activity Resume your normal everyday activity as tolerated no heavy lifting or exercise until seen by your surgeon. You may walk unlimited amounts and climb stairs. You may resume driving the car when you feel safe and comfortable behind the wheel. No sexual activity as instructed. Wound care You may shower daily, no soaking in tubs/baths/pools for 6 weeks or until cleared by your doctor. Diet There are no dietary restrictions. Eat healthy, high-fiber foods. Drink 6 to 8 glasses of liquid each day. This will assist in keeping your bowels regular. Pain management You may take Tylenol or acetaminophen or Ibuprofen as needed for pain. Call MD for any of the following: Severe pain not relieved by medication Fever of 101 or higher Excessive bleeding or drainage on dressing Inability to urinate Disposition: HOME - Home Medications Comprehensive Discharge Medication List: Ambulatory Orders Vitamins (Sjr) - 1 tab PO DAILY 02/18/19 Ferrous Sulfate [Feosol] 325 mg PO BID #60 tablet 03/19/19 Labetalol HCl [Normodyne -] 200 mg PO BID 03/19/19
[2019-03-21] MEDS: NIFEdipine E.R. 30 MG TABLET (FP) PO SCH (10:03)
[2019-03-21] MEDS: PRENATAL VITAMINS W/ FOLIC ACID TABLET (FP) PO SCH (10:03)
--- NOTE | 2019-03-21 13:26 | PN ---
Progress Note (short form) - Note Progress Note: Renal follow up for hypertension Pt seen and examined at the bedside awake and alert reports a mild headache no sob, cp, palpitations, dizziness or lightheadedness Vital Signs Temperature 98.5 F 03/21/19 09:00 Pulse Rate 100 H 03/21/19 13:25 Respiratory Rate 20 03/21/19 09:00 Blood Pressure 140/84 03/21/19 13:25 O2 Sat by Pulse Oximetry (%) 100 03/18/19 19:30 Intake & Output 03/18/19 03/19/19 03/20/19 03/21/19 23:59 23:59 23:59 23:59 Intake Total 3256 Output Total 1100 650 Balance 2156 -650 Weight 106.141 kg NAD no edema CBC, BMP 03/19/19 14:20 03/18/19 09:15 Current Medications Acetaminophen (Tylenol -) 650 mg PO Q3H PRN PRN Reason: PAIN Last Admin: 03/21/19 06:14 Dose: 650 mg Benzocaine (Americaine 20% [place] -) 1 spray TP PRN PRN PRN Reason: PAIN Benzocaine (Americaine Ointment -) 1 applic TP PRN PRN PRN Reason: PAIN Bisacodyl (Dulcolax Suppository -) 10 mg RC PRN PRN PRN Reason: CONSTIPATION Ferrous Sulfate (Feosol -) 325 mg PO TIDCM [facility] Last Admin: 03/21/19 12:03 Dose: 325 mg Parenteral Electrolytes (Plasma-Lyte 148 -) 1,000 mls @ 125 mls/hr IV ASDIR [facility] Last Admin: 03/18/19 14:30 Dose: 125 mls/hr Oxytocin/Sodium Chloride (Normal Saline+20 Units Oxytocin -) 20 unit in 1,000 mls @ 125 mls/hr IV ASDIR [facility] Last Admin: 03/18/19 19:45 Dose: 125 mls/hr Labetalol HCl (Normodyne -) 200 mg PO Q6H PRN PRN Reason: HYPERTENSION Naloxone HCl (Narcan -) 0.4 mg IVPUSH PRN PRN PRN Reason: Sedation Nifedipine (Procardia Xl -) 30 mg PO DAILY [facility] Last Admin: 03/21/19 10:03 Dose: 30 mg Multivit/Folic Acid/Iron ( Vitamins (Sjr) -) 1 tab PO DAILY [facility] Last Admin: 03/21/19 10:03 Dose: 1 tab Senna/Docusate Sodium (Pericolace -) 2 tablet PO HS PRN PRN Reason: CONSTIPATION Witch Holli/Glycerin (Tucks Pads -) 1 pad TP PRN PRN PRN Reason: PAIN 33 year old woman with no significant past medical history presented at 37 weeks with gestational hypertension and s/p vaginal dilivery with hypertension. # hypertension from preesclaspia vs. gestation hypertension vs. pre- existing hypertension #37 weeks gestation s/p vaginal delivery #Anemia s/p /delivery BP is moderated Can be discharged home with Nifedpine ER 30mg Daily advised if WINSLOW worsens to call the office as nifedpine can cause headaches will need close follow up as outpatient for monitoring of BP Advised to maintain a low salt diet, and avoid regular use of NSAIDs Pt informed of symptoms of hypotension and what to do if she were to experience them Will call in Rx to pharmacy advised pt not to take labetalol in addition to nifedpine advised to get BP cuff at home and record readings twice daily Paras Hyde DO
[2019-03-21 13:31] VITALS: BP 140/84; PULSE 100
== END 2019-03-21 15:30 | disposition home or self-care (01) | DRG 806 ==
LOC: JLDR 08:00 → J3W 22:08
PROVIDERS: ADMIT Obstetrics & Gynecology; ATTEND Obstetrics & Gynecology
PROC: 10E0XZZ Delivery of Products of Conception, External Approach (ICD-10-PCS; principal; 2019-03-18)
PROC: 3E033VJ Introduction of Other Hormone into Peripheral Vein, Percutaneous Approach (ICD-10-PCS; 2019-03-18)
PROC: 3E0R3BZ Introduction of Anesthetic Agent into Spinal Canal, Percutaneous Approach (ICD-10-PCS; 2019-03-18)
DX: O13.3 Gestational [pregnancy-induced] hypertension without significant proteinuria, third trimester (principal); O72.1 Other immediate postpartum hemorrhage; Z37.0 Single live birth; O69.81X0 Labor and delivery complicated by cord around neck, without compression, not applicable or unspecified; O26.893 Other specified pregnancy related conditions, third trimester; R76.8 Other specified abnormal immunological findings in serum; O99.02 Anemia complicating childbirth; D64.9 Anemia, unspecified; O34.13 Maternal care for benign tumor of corpus uteri, third trimester; D25.9 Leiomyoma of uterus, unspecified; Z3A.37 37 weeks gestation of pregnancy
CPT/HCPCS: 36415; 36600; 59409; 80048; 80053; 81003; 82565; 82803; 84156; 84550; 85025; 85610; 85730; 86850; 86870; 86900; 86901; 86902; 87389; 90715

== ENCOUNTER 2021-05-22 10:58 | Emergency (ER) | payer OTHER ==
[2021-05-22 11:28] VITALS: BP 152/78; PULSE 82; TEMP 98.1; BMI 35.4
[2021-05-22] MEDS ORDERED: SODIUM CHLORIDE 0.9% 500 ML INFUS.BAG IV ONE (12:03)
[2021-05-22] MEDS ORDERED: KETOROLAC TROMETHAMINE 30 MG/1 ML VIAL IVPB ONE (12:03)
[2021-05-22] MEDS ORDERED: METOCLOPRAMIDE HCL INJECTION 10 MG/2 ML VIAL IVPUSH ONE (12:04)
[2021-05-22] MEDS ORDERED: KETOROLAC TROMETHAMINE 30 MG/1 ML VIAL ONE (12:22)
[2021-05-22] MEDS ORDERED: METOCLOPRAMIDE HCL INJECTION 10 MG/2 ML VIAL ONE (12:26)
[2021-05-22 12:40] LABS: BASO % 0.4 % (0-2.0); EOS % 1.7 % (0-4.5); HEMOGLOBIN 12.4 GM/dL (10.7-15.3); LYMPH % 23.1 % (8-40); MCH 30.2 pg (25.7-33.7); MCHC 33.6 g/dl (32.0-36.0); MEAN CELL VOLUME 89.8 fl (80-96); MEAN PLT VOLUME 8.6 fl (7.5-11.1); MONO % 7.2 % (3.8-10.2); NEUT % 67.6 % (42.8-82.8); PLATELET COUNT 199 10^3/uL (134-434); RBC 4.12 M/mm3 (3.60-5.2); RDW 14.5 % (11.6-15.6); WHITE BLOOD COUNT 6.6 K/mm3 (4.0-10.0)
[2021-05-22 12:58] LABS: ALBUMIN 3.3 g/dl (3.4-5.0); CALCIUM 8.9 mg/dL (8.5-10.1)
[2021-05-22 13:02] LABS: CREATININE 0.7 mg/dL (0.55-1.3)
[2021-05-22 13:04] LABS: BILIRUBIN,TOTAL 0.5 mg/dL (0.2-1); TOT PROT 7.3 g/dl (6.4-8.2)
[2021-05-22 13:08] LABS: BLOOD UREA NITROGEN 9.9 mg/dL (7-18)
== END 2021-05-22 15:35 | disposition home or self-care (01) ==
LOC: JER 10:58 → JERFT 10:58
PROC: 3E033NZ Introduction of Analgesics, Hypnotics, Sedatives into Peripheral Vein, Percutaneous Approach (ICD-10-PCS; principal; 2021-05-22)
PROC: 3E033GC Introduction of Other Therapeutic Substance into Peripheral Vein, Percutaneous Approach (ICD-10-PCS; 2021-05-22)
DX: G44.89 Other headache syndrome (principal)
CPT/HCPCS: 36415; 70450-TC; 80053; 85025; 99285-25

== ENCOUNTER 2021-08-28 14:23 | Emergency (ER) | payer OTHER ==
[2021-08-28 14:48] VITALS: BP 137/78; PULSE 83; TEMP 98.4; BMI 36.1
[2021-08-29 13:06] LABS: SARS-CoV-2 NAA Not Detected (Not Detected)
== END 2021-08-28 17:58 | disposition home or self-care (01) ==
LOC: JER 14:23
DX: J06.9 Acute upper respiratory infection, unspecified (principal); Z20.822 Contact with and (suspected) exposure to COVID-19
CPT/HCPCS: 87804; 99283-25; C9803; U0003; U0005

== ENCOUNTER 2021-09-26 16:39 | Inpatient (IN) | payer OTHER ==
[2021-09-26] MEDS ORDERED: SODIUM CHLORIDE 1,000 ML IV STA (17:14)
[2021-09-26] MEDS ORDERED: ACETAMINOPHEN INJECTION 100 ML IVPB ONE (17:15)
[2021-09-26] MEDS ORDERED: ACETAMINOPHEN 1000 MG/100 ML BAG IVPB ONE (17:15)
[2021-09-26 17:44] LABS: PH,URINE 6.5 (5.0-8.0); URINE APPEARANCE CLEAR; URINE BILIRUBIN NEGATIVE (NEGATIVE); URINE COLOR YELLOW; URINE GLUCOSE (UA) NEGATIVE (NEGATIVE); URINE KETONE NEGATIVE (NEGATIVE); URINE LEUK ESTERASE NEGATIVE (NEGATIVE); URINE NITRITE NEGATIVE (NEGATIVE); URINE PROTEIN NEGATIVE (NEGATIVE)
[2021-09-26 17:46] LABS: BASO % 0.3 % (0-2.0); EOS % 0.6 % (0-4.5); HEMATOCRIT 42.8 % (32.4-45.2); HEMOGLOBIN 14.2 GM/dL (10.7-15.3); LYMPH % 11.2 % (8-40); MCH 30.2 pg (25.7-33.7); MCHC 33.1 g/dl (32.0-36.0); MEAN CELL VOLUME 91.2 fl (80-96); MEAN PLT VOLUME 8.3 fl (7.5-11.1); MONO % 7.7 % (3.8-10.2); NEUT % 80.2 % (42.8-82.8); PLATELET COUNT 243 10^3/uL (134-434); RDW 13.7 % (11.6-15.6)
[2021-09-26 18:09] LABS: CHLORIDE 102 mmol/L (98-107); SODIUM 138 mmol/L (136-145)
[2021-09-26 18:11] LABS: CALCIUM 9.1 mg/dL (8.5-10.1); GLUCOSE,RANDOM 84 mg/dL (74-106)
[2021-09-26 18:12] LABS: ALBUMIN 3.8 g/dl (3.4-5.0); ANION GAP 7 MMOL/L (8-16); BLOOD UREA NITROGEN 14.3 mg/dL (7-18); CO2 30 mmol/L (21-32)
[2021-09-26 18:14] LABS: SGPT/ALT 17 U/L (13-61)
[2021-09-26 18:15] LABS: CREATININE 0.7 mg/dL (0.55-1.3); SGOT/AST 11 U/L (15-37)
[2021-09-26 18:16] LABS: BILIRUBIN,TOTAL 0.6 mg/dL (0.2-1); TOT PROT 8.1 g/dl (6.4-8.2)
[2021-09-26 18:17] LABS: ALK PHOS 66 U/L (45-117)
[2021-09-26] MEDS ORDERED: PIPERACILLIN/TAZOB 4.5 GM 4.5 GM in DEXTROSE 5%-WATER 100 ML IVPB ONE (20:05)
[2021-09-26] MEDS ORDERED: POLYETHYLENE GLYCOL (HEALTHYLAX) 3350 17 GM PACKET PO PRN (20:46)
[2021-09-26] MEDS ORDERED: DEXTROSE 5%-NORMAL SALINE 1,000 ML IV SCH (21:00)
[2021-09-26] MEDS ORDERED: PIPERACILLIN/TAZOB 4.5 GM 4.5 GM/100 ML BAG IVPB ONE (21:23)
[2021-09-26 21:35] LABS: INR 1.15 (0.83-1.09); PROTHROMBIN TIME (PATIENT) 13.2 SEC (9.7-13.0)
[2021-09-26 21:37] LABS: ACTIVATED PTT 28.8 SECONDS (25.2-36.5)
[2021-09-26] MEDS ORDERED: ONDANSETRON 4 MG/2 ML VIAL IVPUSH PRN (23:00)
[2021-09-27] MEDS ORDERED: ACETAMINOPHEN INJECTION 100 ML IVPB ONE ×2 (01:33→12:46)
[2021-09-27] MEDS: ACETAMINOPHEN 1000 MG/100 ML BAG IVPB PRN ×2 (01:46→07:37)
[2021-09-27 03:28] VITALS: BMI 34.9
[2021-09-27] MEDS ORDERED: DEXTROSE 5%-WATER 100 ML IVPB ONE ×2 (03:42→09:57)
[2021-09-27] MEDS ORDERED: PIPERACILLIN/TAZOBACTAM 4.5 GM VIAL IVPB ONE ×4 (03:42→11:36)
[2021-09-27] MEDS: PIPERACILLIN/TAZOB 4.5 GM 4.5 GM in DEXTROSE 5%-WATER 100 ML IVPB SCH ×2 (03:46→10:08)
[2021-09-27] MEDS ORDERED: ONDANSETRON 4 MG/2 ML VIAL IVPUSH PRN ×3 (09:03→12:43)
[2021-09-27 09:08] LABS: BASO % 0.2 % (0-2.0); EOS % 1.2 % (0-4.5); HEMATOCRIT 38.5 % (32.4-45.2); HEMOGLOBIN 12.9 GM/dL (10.7-15.3); MCH 30.6 pg (25.7-33.7); MCHC 33.4 g/dl (32.0-36.0); MEAN CELL VOLUME 91.5 fl (80-96); MEAN PLT VOLUME 8.4 fl (7.5-11.1); MONO % 9.5 % (3.8-10.2); NEUT % 74.1 % (42.8-82.8); PLATELET COUNT 190 10^3/uL (134-434); RBC 4.21 M/mm3 (3.60-5.2); RDW 13.4 % (11.6-15.6); WHITE BLOOD COUNT 8.1 K/mm3 (4.0-10.0)
[2021-09-27 09:13] LABS: CALCIUM 7.9 mg/dL (8.5-10.1)
[2021-09-27 09:14] LABS: BLOOD UREA NITROGEN 8.8 mg/dL (7-18)
[2021-09-27] MEDS ORDERED: LACTATED RINGERS SOLUTION 1,000 ML IV SCH ×2 (09:15→12:43)
[2021-09-27 09:17] LABS: CREATININE 0.8 mg/dL (0.55-1.3)
[2021-09-27] MEDS ORDERED: LIDOCAINE HCL/PF 2% SDV 5ML VIAL ONE (09:47)
[2021-09-27] MEDS ORDERED: GLYCOPYRROLATE 0.2 MG/1 ML VIAL ONE ×3 (09:47→11:53)
[2021-09-27] MEDS ORDERED: PROPOFOL 20 ML ONE ×2 (09:50→09:52)
[2021-09-27] MEDS ORDERED: MIDAZOLAM HCL 2 MG/2 ML SINGLE DOSE VIAL ONE (10:57)
[2021-09-27] MEDS ORDERED: ONDANSETRON 4 MG/2 ML VIAL ONE (11:49)
[2021-09-27] MEDS ORDERED: DEXAMETHASONE SOD PHOSPHATE 4 MG/1 ML VIAL ONE (11:49)
[2021-09-27] MEDS ORDERED: NEOSTIGMINE METHYLSULFATE 0.5 MG/1 ML - 10 ML MDV ONE (11:52)
[2021-09-27] MEDS ORDERED: BUPIVACAINE HCL/PF 0.5% (5MG/ML) 10 ML VIAL IJ ONE (12:03)
[2021-09-27] MEDS ORDERED: ACETAMINOPHEN 1000 MG/100 ML BAG IVPB ONE (12:28)
[2021-09-27] MEDS ORDERED: ACETAMINOPHEN 1000 MG/100 ML BAG IVPB PRN (12:43)
[2021-09-27] MEDS: oxyCODONE HCL 5 MG TABLET PO PRN (17:46)
[2021-09-28] MEDS: oxyCODONE HCL 5 MG TABLET PO PRN ×3 (00:04→17:33)
[2021-09-28] MEDS ORDERED: PIPERACILLIN/TAZOB 4.5 GM 4.5 GM in DEXTROSE 5%-WATER 100 ML IVPB SCH (02:00)
[2021-09-28 04:35] VITALS: BP 108/63; PULSE 66; TEMP 98.4
[2021-09-28 10:02] LABS: BLOOD UREA NITROGEN 9.2 mg/dL (7-18); CALCIUM 8.4 mg/dL (8.5-10.1)
[2021-09-28 10:05] LABS: CREATININE 0.9 mg/dL (0.55-1.3)
[2021-09-28 10:07] LABS: BILIRUBIN,TOTAL 0.5 mg/dL (0.2-1); TOT PROT 6.6 g/dl (6.4-8.2)
[2021-09-28 10:10] LABS: ALBUMIN 2.9 g/dl (3.4-5.0)
[2021-09-28] MEDS ORDERED: POTASSIUM CHLORIDE TABS 10 MEQ TABLET.ER (FP) PO ONE (10:27)
== END 2021-09-28 18:25 | disposition home or self-care (01) | DRG 343 ==
LOC: JER 16:39 → JERBED 20:10 → J6S 09-27 03:10
PROVIDERS: ADMIT Hospitalist; ATTEND Family Medicine
PROC: 0DTJ4ZZ Resection of Appendix, Percutaneous Endoscopic Approach (ICD-10-PCS; principal; 2021-09-27 11:00)
DX: K35.80 Unspecified acute appendicitis (principal); E28.2 Polycystic ovarian syndrome; D25.9 Leiomyoma of uterus, unspecified; E66.9 Obesity, unspecified; Z68.35 Body mass index [BMI] 35.0-35.9, adult
CPT/HCPCS: 36415; 71046-TC-FY; 74177-TC; 80048; 80053; 81003; 84702; 84703; 85025; 85610; 85730; 86850; 86870; 86900; 86901; 86902; 87086; 88304-TC; 93005; 93010; 94760; 99285-25; C9803; J0131; Q9967; U0003; U0005

== ENCOUNTER 2021-12-17 12:25 | Emergency (ER) | payer OTHER ==
[2021-12-17 12:32] VITALS: BP 128/70; PULSE 89; TEMP 97.9; BMI 34.9
[2021-12-18 12:09] LABS: SARS-CoV-2 NAA Not Detected (Not Detected)
== END 2021-12-17 13:29 | disposition home or self-care (01) ==
LOC: JER 12:25
DX: R07.0 Pain in throat (principal); R09.81 Nasal congestion; Z20.822 Contact with and (suspected) exposure to COVID-19
CPT/HCPCS: 87651; 87804; 99283-25; C9803-CS; U0003; U0005

== ENCOUNTER 2022-03-06 07:36 | Day surgery (SDC) | payer OTHER ==
[2022-02-24 12:54] VITALS: BMI 34.8
[2022-03-06] MEDS ORDERED: BUPIVACAINE HCL/EPINEPHRINE/PF 30 ML VIAL IJ ONE (08:06)
[2022-03-06] MEDS ORDERED: PROPOFOL 20 ML ONE ×2 (09:24→09:30)
[2022-03-06] MEDS ORDERED: SUCCINYLCHOLINE CHLORIDE 200 MG/10 ML SYRINGE ONE (09:24)
[2022-03-06] MEDS ORDERED: MIDAZOLAM HCL 2 MG/2 ML SINGLE DOSE VIAL ONE (09:51)
[2022-03-06] MEDS ORDERED: KETOROLAC TROMETHAMINE 30 MG/1 ML VIAL ONE (10:45)
[2022-03-06] MEDS ORDERED: DEXAMETHASONE SOD PHOSPHATE 4 MG/1 ML VIAL ONE (10:45)
[2022-03-06] MEDS ORDERED: ONDANSETRON 4 MG/2 ML VIAL ONE (10:45)
[2022-03-06] MEDS ORDERED: ONDANSETRON 4 MG/2 ML VIAL IVPUSH PRN (10:50)
[2022-03-06] MEDS ORDERED: PROMETHAZINE HCL 25 MG/1 ML VIAL IVPUSH PRN (10:50)
[2022-03-06] MEDS ORDERED: oxyCODONE HCL 5 MG TABLET PO PRN (10:50)
[2022-03-06] MEDS ORDERED: ACETAMINOPHEN 500 MG TABLET (FP) ONE (11:15)
[2022-03-06] MEDS ORDERED: FENTANYL CITRATE/PF 50 MCG/ML VIAL ONE (11:16)
[2022-03-06] MEDS ORDERED: ACETAMINOPHEN 325 MG TABLET (FP) PO ONE (11:19)
[2022-03-06] MEDS ORDERED: ACETAMINOPHEN 500 MG TABLET (FP) PO ONE (11:34)
[2022-03-06 12:08] VITALS: TEMP 97.8
[2022-03-06 13:49] VITALS: BP 132/84; PULSE 70
== END 2022-03-06 13:49 | disposition home or self-care (01) ==
LOC: FASU 07:36
PROVIDERS: ATTEND Orthopaedic Surgery
PROC: 0SBC4ZZ Excision of Right Knee Joint, Percutaneous Endoscopic Approach (ICD-10-PCS; principal; 2022-03-06 10:02)
PROC: 0SBC4ZZ Excision of Right Knee Joint, Percutaneous Endoscopic Approach (ICD-10-PCS; 2022-03-06 10:02)
DX: M22.41 Chondromalacia patellae, right knee (principal); M94.261 Chondromalacia, right knee
CPT/HCPCS: 84703; 94760

== ENCOUNTER 2022-07-08 09:55 | Emergency (ER) | payer OTHER ==
[2022-07-08 10:03] VITALS: BP 158/97; PULSE 97; RESP 19; TEMP 98.6; BMI 36.1
== END 2022-07-08 11:49 | disposition home or self-care (01) ==
LOC: JER 09:55
DX: R05.1 Acute cough (principal); J02.9 Acute pharyngitis, unspecified; B97.4 Respiratory syncytial virus as the cause of diseases classified elsewhere
CPT/HCPCS: 0241U-QW; 99283-25

== ENCOUNTER 2024-04-02 02:24 | Emergency (ER) | payer OTHER ==
[2024-04-02 02:38] VITALS: BP 142/88; PULSE 61; RESP 18; TEMP 98; BMI 26.6
== END 2024-04-02 04:54 | disposition home or self-care (01) ==
LOC: JER 02:24
DX: M54.50 Low back pain, unspecified (principal); M79.642 Pain in left hand; M79.671 Pain in right foot; W01.0XXA Fall on same level from slipping, tripping and stumbling without subsequent striking against object, initial encounter; Y99.0 Civilian activity done for income or pay
CPT/HCPCS: 73130-TC-LT-FY; 73630-TC-RT-FY; 99284-25